=== PATIENT | male | born 1955 | race American Indian/Alaskan Native ===

== ENCOUNTER 2017-04-28 20:38 | Emergency (ER) | payer MEDICARE ==
[2017-04-28] MEDS ORDERED: NACL 0.9% 1000 ML 1,000 ML IV ONE ×5 (20:54→23:58)
[2017-04-28] MEDS: ASPIRIN PO ONE (20:55)
--- NOTE | 2017-04-28 21:32 | Emergency Department Report ---
ED General Adult HPI - General Chief complaint: Syncope Stated complaint: AMS Time Seen by Provider: 04/28/17 21:00 Source: patient, EMS Mode of arrival: Ambulatory Limitations: Altered Mental Status - History of Present Illness Initial comments: 61 yo male who comes in today due to somnolence. The patient states that a family member called ems when they thought he overdosed on his medications. The patient states that he normally takes ambien, a benzodiazepine, and other meds around 4-6 pm each day to get some sleep and wake up around 1 am. When he wakes up at 1 am, he normally watches tv and other chores until it's time to take his sister to dialysis. He states that this is a normal process which takes place each day. He denies any complaints. Somnolence improving in the ED. AAOx3. -: This evening Consistency: now resolved Associated Symptoms: denies other symptoms Treatments Prior to Arrival: none - Related Data Allergies Allergy/AdvReac Type Severity Reaction Status Date / Time No Known Allergies Allergy Unverified 04/28/17 20:45 ED Review of Systems ROS: Stated complaint: AMS Other details as noted in HPI Constitutional: other (somnolence ). denies: chills, fever Eyes: denies: eye pain, eye discharge, vision change ENT: denies: ear pain, throat pain Respiratory: denies: cough, shortness of breath, wheezing Cardiovascular: denies: chest pain, palpitations Endocrine: no symptoms reported Gastrointestinal: denies: abdominal pain, nausea, diarrhea Genitourinary: denies: urgency, dysuria Musculoskeletal: denies: back pain, joint swelling, arthralgia Skin: denies: rash, lesions Neurological: denies: headache, weakness, paresthesias Psychiatric: other (somnolent-see hpi ) Hematological/Lymphatic: denies: easy bleeding, easy bruising ED Past Medical Hx - Past Medical History Previous Medical History?: Yes Hx Hypertension: Yes Hx Diabetes: Yes - Surgical History Past Surgical History?: Yes Additional Surgical History: R. eyelid, L. knee surgery - Social History Smoking Status: Never Smoker ED Physical Exam - General Limitations: Altered Mental Status General appearance: alert - Head Head exam: Present: atraumatic, normocephalic - Eye Eye exam: Present: normal appearance - ENT ENT exam: Present: mucous membranes moist - Neck Neck exam: Present: normal inspection - Respiratory Respiratory exam: Present: normal lung sounds bilaterally. Absent: respiratory distress - Cardiovascular Cardiovascular Exam: Present: regular rate, normal rhythm. Absent: systolic murmur, diastolic murmur, rubs, gallop - GI/Abdominal GI/Abdominal exam: Present: soft, normal bowel sounds - Extremities Exam Extremities exam: Present: normal inspection - Back Exam Back exam: Present: normal inspection - Neurological Exam Neurological exam: Present: alert, oriented X3 - Psychiatric Psychiatric exam: Present: other (somnolent ) - Skin Skin exam: Present: warm, dry, intact, normal color. Absent: rash ED Course Vital Signs 04/28/17 04/28/17 04/28/17 20:47 21:51 21:54 Temperature 98 F Pulse Rate 67 62 64 Respiratory 28 H 18 Rate Blood Pressure 75/47 Blood Pressure 90/48 90/49 [Left] O2 Sat by Pulse 98 97 Oximetry 04/28/17 23:18 Temperature Pulse Rate 59 L Respiratory Rate Blood Pressure Blood Pressure 83/47 [Left] O2 Sat by Pulse Oximetry - Reevaluation(s) Reevaluation #1: 04/28/17 21:34 Plan to give ivf's and let the patient sleep off the meds. Home if evaluation unremarkable. Reevaluation #2: 04/29/17 00:00 I spoke with the patient about his evaluation. I recommended him to be admitted , however, he states that he needs to take his sister to dialysis. She doesn't have anyone else to take her to dialysis. I stated to him that I'd like to give him another liter of fluids before discharge. He was also informed to follow up with his provider in regards to his creatinine of 2.7. ED Medical Decision Making - Lab Data Result diagrams: 04/28/17 21:17 04/28/17 21:17 - Radiology Data Radiology results: report reviewed (Negative chest radiograph) - Medical Decision Making Polypharmacy Acute vs chronic renal failure Syncopal episode - Differential Diagnosis Polypharmacy, syncope, acute vs chronic renal failure Critical care attestation.: If time is entered above; I have spent that time in minutes in the direct care of this critically ill patient, excluding procedure time. ED Disposition Clinical Impression: Syncope, Polypharmacy, Acute renal failure Disposition: TO HOME OR SELFCARE Is pt being admited?: No Does the pt Need Aspirin: No Condition: Stable Instructions: Syncope (ED), Chronic Kidney Disease (ED) Additional Instructions: Please follow up with your provider on discharge. Return to the ED for any dizziness, lightheadedness, nausea, vomiting, shortness of breath, or chest pain. Also remember to hydrate due to your kidney function results. Referrals: PRIMARY CARE, [Primary Care Provider] - 3-5 Days Time of Disposition: 00:09
[2017-04-28 21:44] LABS: Mean Corpuscular HGB Conc 30 % (32-34); Mean Corpuscular Volume 77 fl (84-94); Platelet Count 219 K/mm3 (140-440); Red Blood Count 4.77 M/mm3 (3.65-5.03); Red Cell Distribution Width 14.8 % (13.2-15.2)
[2017-04-28 21:49] LABS: BUN/Creatinine Ratio 14; Blood Urea Nitrogen 38 mg/dL (9-20); Calcium 7.6 mg/dL (8.4-10.2); Hematocrit 36.7 % (35.5-45.6); Hemoglobin 11.1 gm/dl (11.8-15.2); Hemolysis Index 16; Mean Corpuscular Hemoglobin 23 pg (28-32)
[2017-04-28 21:52] LABS: Basophils % (Auto) 0.3 % (0.0-1.8); Eosinophils % (Auto) 0.8 % (0.0-4.3); Lymphocytes # (Auto) 1.2 K/mm3 (1.2-5.4); Lymphocytes % (Auto) 14.7 % (13.4-35.0); Monocytes # (Auto) 0.4 K/mm3 (0.0-0.8)
[2017-04-28 21:53] LABS: Eosinophils # (Auto) 0.1 K/mm3 (0.0-0.4)
--- NOTE | 2017-04-28 22:12 | XRay Report ---
FINAL REPORT PROCEDURE: Chest. TECHNIQUE: Portable AP view. HISTORY: Syncopal episode. COMPARISON: No prior studies are available for comparison. FINDINGS: The heart and mediastinum appear normal. The lungs are clear and well expanded. There are no pleural effusions. The soft tissues and regional skeleton are unremarkable. IMPRESSION: Negative portable chest.
[2017-04-28 22:43] LABS: Bacteria,Urine 1+ /HPF (Negative); Bilirubin,Urine NEG (Negative); Blood,Urine SM (Negative); Color,Urine Yellow (Yellow); Mucus,Urine FEW /HPF; Nitrite,Urine NEG (Negative); Urobilinogen,Urine < 2.0 mg/dL (<2.0)
[2017-04-28 22:45] LABS: Amphetamine Screen,Urine PRESUMPTIVE NEGATIVE; Cannabinoid Screen,Urine PRESUMPTIVE NEGATIVE; Cocaine Screen,Urine PRESUMPTIVE NEGATIVE; Methadone Screen,Urine PRESUMPTIVE NEGATIVE; Opiate Screen,Urine PRESUMPTIVE NEGATIVE
[2017-04-28 23:12] LABS: Benzodiazepines Screen,Urine PRESUMPTIVE POSITIVE
[2017-04-29] MEDS: ASPIRIN PO ONE (00:19)
[2017-04-29 04:43] VITALS: BP 114/72
== END 2017-04-29 04:56 | disposition home or self-care (01) ==
LOC: ED 20:38
DX: I12.9 Hypertensive chronic kidney disease with stage 1 through stage 4 chronic kidney disease, or unspecified chronic kidney disease (principal); E11.22 Type 2 diabetes mellitus with diabetic chronic kidney disease; N18.9 Chronic kidney disease, unspecified
CPT/HCPCS: 36415; 71045; 80048; 80307; 81001; 84484; 85025; 96361; 96374; 99285; G0480; J7030; 80320; J1815

== ENCOUNTER 2019-02-14 17:17 | Emergency (ER) | payer MEDICARE ==
[2019-02-14] MEDS ORDERED: ASPIRIN 81 MG TAB CHEW PO ONE (17:31)
[2019-02-14 17:33] VITALS: BP 166/91
--- NOTE | 2019-02-14 17:35 | Event Note ---
ED Screening Note Date of service: 02/14/18 Time: 17:33 ED Screening Note: Pt complains of right sided chest pain x 10 am today. Hx of CVA pain only occurs with movement of torso and deep inspiration also states some tingling in lips and left hand denies hx of DVT/PE This initial assessment/diagnostic orders/clinical plan/treatment(s) is/are subject to change based on patients health status, clinical progression and re- assessment by fellow clinical providers in the ED. Further treatment and workup at subsequent clinical providers discretion. Patient/guardian urged not to elope from the ED as their condition may be serious if not clinically assessed and managed. Initial orders include: labs CT head CXR aspirin
[2019-02-14 18:14] LABS: Hematocrit 36.2 % (35.5-45.6); Hemoglobin 11.7 gm/dl (11.8-15.2); Mean Corpuscular HGB Conc 32 % (32-34); Mean Corpuscular Volume 74 fl (84-94); Platelet Count 187 K/mm3 (140-440); Red Blood Count 4.88 M/mm3 (3.65-5.03); Red Cell Distribution Width 13.5 % (13.2-15.2)
[2019-02-14 18:29] LABS: INR 1.06 (0.87-1.13)
[2019-02-14 18:30] LABS: Partial Thromboplastin Time 24.5 Sec. (24.2-36.6)
--- NOTE | 2019-02-14 18:33 | Cat Scan Report ---
CT HEAD WITHOUT CONTRAST INDICATION / CLINICAL INFORMATION: MAIN: RT side numbness in fingers and mouth, started this morning. TECHNIQUE: All CT scans at this location are performed using CT dose reduction for ALARA by means of automated e xposure control. COMPARISON: Head CT 09/26/2008 FINDINGS: HEMORRHAGE: No evidence of intracranial hemorrhage or extra-axial fluid collection. EXTRA-AXIAL SPACES: Cortical sulci, sylvian fissures and basilar cisterns have an unremarkable appear ance. VENTRICULAR SYSTEM: The ventricular system is of normal size and configuration. CEREBRAL PARENCHYMA: There is evidence of remote small deep infarction in the head of the caudate nuc leus on the right. No additional areas of abnormal brain parenchymal attenuation are identified. Ther e is no indication of recent infarction. MIDLINE SHIFT OR HERNIATION: There is no mass effect. CEREBELLUM / BRAINSTEM: Brainstem and cerebellum have an unremarkable appearance. INTRACRANIAL VESSELS:No abnormalities are identified on this noncontrast head CT. ORBITS: visualized portions of the orbits have an unremarkable appearance. SOFT TISSUES of HEAD: No significant abnormality. CALVARIUM: Evaluation of bone windows reveals no abnormalities. PARANASAL SINUSES / MASTOID AIR CELLS: Paranasal sinuses are free from inflammatory mucosal disease. Mastoid air cells are normally pneumatized. IMPRESSION: 1. 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 2. Otherwise negative head CT without contrast. Signer Name: Jersey Swartz MD Signed: 02/14/2019 6:29 PM Workstation Name: [id number]
[2019-02-14 18:36] LABS: BUN/Creatinine Ratio 11; Blood Urea Nitrogen 37 mg/dL (9-20); Calcium 8.6 mg/dL (8.4-10.2); Hemolysis Index 5
--- NOTE | 2019-02-14 18:51 | XRay Report ---
CHEST 1 VIEW INDICATION / CLINICAL INFORMATION: Chest Pain. COMPARISON: 04/28/2017 FINDINGS: SUPPORT DEVICES: None. HEART / MEDIASTINUM: No significant abnormality. LUNGS / PLEURA: No significant pulmonary or pleural abnormality.. No pneumothorax. ADDITIONAL FINDINGS: No significant additional findings. IMPRESSION: 1. No acute findings. Signer Name: Zeus Low MD Signed: 02/14/2019 6:47 PM Workstation Name: [id number]
--- NOTE | 2019-02-14 21:26 | Emergency Department Report ---
ED Chest Pain HPI - General Chief Complaint: Chest Pain Stated Complaint: CHEST PAIN Time Seen by Provider: 02/14/19 17:29 Source: patient Mode of arrival: Ambulatory Limitations: No Limitations - History of Present Illness Initial Comments: Patient is a 63-year-old male that presents emergency room with complaints of right-sided chest pain. She states his symptoms started 10 AM this morning. Patient states his chest pain is a 3 out of 10. Patient states the pain is better with rest and worse with taking a deep breath. Patient states he feels like his pleurisy. Patient denies shortness of breath. Patient denies fever and chills. Patient denies nausea vomiting. Patient denies anxiety and diaphoresis. Patient denies headache. Patient denies any other complaints. Patient denies facial numbness. Patient denies hand numbness. MD Complaint: chest pain -: Sudden Onset: during rest Pain Location: right chest Pain Radiation: none Severity scale (0 -10): 3 Quality: pressure Consistency: constant Improves With: rest Worsens With: inspiration re: denies: nausea, vomting, diaphoresis, dyspnea, sense of impending doom Other Symptoms: denies: cough, fever, syncope, rash, acid taste in mouth, leg swelling, palpitations, burping Treatments Prior to Arrival: none Aspirin use within the Past 7 Days: (1) Yes - Related Data On Oral Contraceptives: No Home Medications Medication Instructions Recorded Confirmed Last Taken Chlorzoxazone (Nf) [Parafon Forte 500 mg PO TID 02/14/19 02/14/19 Unknown Dsc (Nf)] Colesevelam [Welchol] 1,875 mg PO BID 02/14/19 02/14/19 Unknown Lidocaine [Lidocaine OINT] 37.5 gm TP DAILY 02/14/19 02/14/19 Unknown Lisinopril [Zestril TAB] 40 mg PO DAILY 02/14/19 02/14/19 Unknown Metformin HCl [metFORMIN] 1,000 mg PO DAILY 02/14/19 02/14/19 Unknown Promethazine [Phenergan] 25 mg PO TID PRN 02/14/19 02/14/19 Unknown Zolpidem [Ambien] 20 mg PO QHS 02/14/19 02/14/19 Unknown amLODIPine [Norvasc] 10 mg PO DAILY 02/14/19 02/14/19 Unknown diazePAM [Diazepam] 10 mg PO BID 02/14/19 02/14/19 Unknown tiZANidine [Zanaflex 4mg TAB] 4 mg PO TID 02/14/19 02/14/19 Unknown Previous Rx's Medication Instructions Recorded Last Taken Type methylPREDNISolone [Medrol 4MG 4 mg PO DAILY 6 Days #1 tab.ds.pk 02/15/19 Unknown Rx DOSEPAK (21 tabs)] Allergies Allergy/AdvReac Type Severity Reaction Status Date / Time No Known Allergies Allergy Unverified 04/28/17 20:45 Heart Score - HEART Score History: Slightly suspicious EKG: Normal Age: 45-65 Risk factors: > 3 risk factors or hx of atherosclerotic disease Troponin: < normal limit HEART Score: 3 ED Review of Systems ROS: Stated complaint: CHEST PAIN Other details as noted in HPI Constitutional: denies: chills, fever Eyes: denies: eye pain, eye discharge, vision change ENT: denies: ear pain, throat pain Respiratory: denies: cough, shortness of breath, wheezing Cardiovascular: chest pain. denies: palpitations Endocrine: no symptoms reported Gastrointestinal: denies: abdominal pain, nausea, diarrhea Genitourinary: denies: urgency, dysuria Musculoskeletal: denies: back pain, joint swelling, arthralgia Skin: denies: rash, lesions Neurological: denies: headache, weakness, paresthesias Psychiatric: denies: anxiety, depression Hematological/Lymphatic: denies: easy bleeding, easy bruising ED Past Medical Hx - Past Medical History Previous Medical History?: Yes Hx Hypertension: Yes Hx CVA: Yes Hx Diabetes: Yes - Surgical History Past Surgical History?: Yes Additional Surgical History: R. eyelid, L. knee surgery - Family History Family history: no significant - Social History Smoking Status: Former Smoker Substance Use Type: None - Medications Home Medications: Home Medications Medication Instructions Recorded Confirmed Last Taken Type Chlorzoxazone (Nf) [Parafon Forte 500 mg PO TID 02/14/19 02/14/19 Unknown History Dsc (Nf)] Colesevelam [Welchol] 1,875 mg PO BID 02/14/19 02/14/19 Unknown History Lidocaine [Lidocaine OINT] 37.5 gm TP DAILY 02/14/19 02/14/19 Unknown History Lisinopril [Zestril TAB] 40 mg PO DAILY 02/14/19 02/14/19 Unknown History Metformin HCl [metFORMIN] 1,000 mg PO DAILY 02/14/19 02/14/19 Unknown History Promethazine [Phenergan] 25 mg PO TID PRN 02/14/19 02/14/19 Unknown History Zolpidem [Ambien] 20 mg PO QHS 02/14/19 02/14/19 Unknown History amLODIPine [Norvasc] 10 mg PO DAILY 02/14/19 02/14/19 Unknown History diazePAM [Diazepam] 10 mg PO BID 02/14/19 02/14/19 Unknown History tiZANidine [Zanaflex 4mg TAB] 4 mg PO TID 02/14/19 02/14/19 Unknown History methylPREDNISolone [Medrol 4MG 4 mg PO DAILY 6 Days #1 tab.ds.pk 02/15/19 Unknown Rx DOSEPAK (21 tabs)] ED Physical Exam - General Limitations: No Limitations General appearance: alert, in no apparent distress - Head Head exam: Present: atraumatic, normocephalic - Eye Eye exam: Present: normal appearance - ENT ENT exam: Present: mucous membranes moist - Neck Neck exam: Present: normal inspection - Respiratory Respiratory exam: Present: normal lung sounds bilaterally, chest wall tenderness (rt chest ttp). Absent: respiratory distress, wheezes, rales, rhonchi, stridor, accessory muscle use, decreased breath sounds, prolonged expiratory - Cardiovascular Cardiovascular Exam: Present: regular rate, normal rhythm. Absent: systolic murmur, diastolic murmur, rubs, gallop - GI/Abdominal GI/Abdominal exam: Present: soft, normal bowel sounds - Rectal Rectal exam: Present: deferred - Extremities Exam Extremities exam: Present: normal inspection - Back Exam Back exam: Present: normal inspection - Neurological Exam Neurological exam: Present: alert, oriented X3 - Psychiatric Psychiatric exam: Present: normal affect, normal mood - Skin Skin exam: Present: warm, dry, intact, normal color. Absent: rash ED Course Vital Signs 02/14/19 02/14/19 17:31 22:31 Temperature 98.3 F Pulse Rate 59 L Respiratory 18 18 Rate Blood Pressure 166/91 O2 Sat by Pulse 100 100 Oximetry - Reevaluation(s) Reevaluation #1: I discussed all results with patient. Patient states she is pain-free. Patient will be given IM Solu-Medrol. I discussed plan of care with patient. Patient agrees plan of care. Patient given discharge instructions. Patient voiced understanding of discharge instructions. Patient will be discharged home. Patient is stable for discharge. 02/15/19 00:08 ED Medical Decision Making - Lab Data Result diagrams: 02/14/19 17:59 02/14/19 17:59 - EKG Data -: EKG Interpreted by Me EKG shows normal: sinus rhythm, axis, intervals, QRS complexes, ST-T waves Rate: bradycardia - Radiology Data Radiology results: report reviewed, image reviewed interpreted by me: No acute findings on chest x-ray. CHEST 1 VIEW INDICATION / CLINICAL INFORMATION: Chest Pain. COMPARISON: 04/28/2017 FINDINGS: SUPPORT DEVICES: None. HEART / MEDIASTINUM: No significant abnormality. LUNGS / PLEURA: No significant pulmonary or pleural abnormality.. No pneumothorax. ADDITIONAL FINDINGS: No significant additional findings. IMPRESSION: 1. No acute findings. CT HEAD WITHOUT CONTRAST INDICATION / CLINICAL INFORMATION: MAIN: RT side numbness in fingers and mouth, started this morning. TECHNIQUE: All CT scans at this location are performed using CT dose reduction for ALARA by means of automated exposure control. COMPARISON: Head CT 09/26/2008 FINDINGS: HEMORRHAGE: No evidence of intracranial hemorrhage or extra-axial fluid collection. EXTRA-AXIAL SPACES: Cortical sulci, sylvian fissures and basilar cisterns have an unremarkable appearance. VENTRICULAR SYSTEM: The ventricular system is of normal size and configuration. CEREBRAL PARENCHYMA: There is evidence of remote small deep infarction in the head of the caudate nucleus on the right. No additional areas of abnormal brain parenchymal attenuation are identified. There is no indication of recent infarction. MIDLINE SHIFT OR HERNIATION: There is no mass effect. CEREBELLUM / BRAINSTEM: Brainstem and cerebellum have an unremarkable appearance. INTRACRANIAL VESSELS:No abnormalities are identified on this noncontrast head CT. ORBITS: visualized portions of the orbits have an unremarkable appearance. SOFT TISSUES of HEAD: No significant abnormality. CALVARIUM: Evaluation of bone windows reveals no abnormalities. PARANASAL SINUSES / MASTOID AIR CELLS: Paranasal sinuses are free from inflammatory mucosal disease. Mastoid air cells are normally pneumatized. IMPRESSION: 1. 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 2. Otherwise negative head CT without contrast. CT CHEST WITHOUT CONTRAST INDICATION: chest pain CONTRAST: Without IV COMPARISON: [facility] chest x-ray [place], thyroid ultrasound 08/26/[address] scans at this location are performed using CT dose reduction for ALARA by means of automated exposure control. FINDINGS: Left lobe thyroid is enlarged and shows nodular hypodensities measuring up to approximately 2.3 cm. Right lobe appears to been removed since 2014. No significant axillary or chest wall abnormalities are seen. No mediastinal or hilar masses are noted. Visualized portions of the upper abdomen show no acute abnormalities. No pneumothorax or pneumomediastinum are seen. Lung valladares show only slight atelectatic change. No areas of consolidation are seen. No nodules or masses are noted. No pleural effusions are seen. IMPRESSION: 1. No significant acute abnormalities are seen 2. Left thyroid nodularity. This has been demonstrated in the past. - Medical Decision Making Is a 63-year-old male that presents emergency room with complaints of right- sided chest pain. Patient states the last time he had right-sided chest it was pleurisy. Patient's findings are consistent with pleurisy. Patient given a steroid pack. Patient's labs essentially unremarkable except for CKD. Patient's chest x-ray negative for acute findings. Patient had a CT scan of the chest and was negative. Patient EKG shows sinus bradycardia. Patient stable for discharge. Patient discharged home. Patient discharged home with Medrol pack. - Differential Diagnosis pleurisy. Chest pain. Critical care attestation.: If time is entered above; I have spent that time in minutes in the direct care of this critically ill patient, excluding procedure time. ED Disposition Clinical Impression: Pleurisy, Right-sided chest pain, Essential hypertension Chest pain Qualifiers: Chest pain type: unspecified Qualified Code(s): R07.9 - Chest pain, unspecified CKD (chronic kidney disease) Qualifiers: Chronic kidney disease stage: unspecified stage Qualified Code(s): N18.9 - Chronic kidney disease, unspecified Disposition: - TO HOME OR SELFCARE Is pt being admited?: No Does the pt Need Aspirin: No Condition: Stable Instructions: Chest Pain (ED), Pleurisy (ED), Heart Healthy Diet (ED), How to Take a Blood Pressure (ED), DASH Eating Plan (ED), Low Sodium Diet (ED), Hyper tension (ED) Additional Instructions: Patient to follow-up with primary care in 2-3 days. Patient to follow-up with range technician in 2-3 days. Patient to follow up with software licensing analyst in 2-3 days. Patient to follow up with r[employer]ian rubber in 2-3 days. Patient to return to ER condition worsens. Patient to rest. Patient increase water. Patient take Tylenol when necessary for pain. Patient take meds as directed. Patient to continue all other medications. Prescriptions: methylPREDNISolone [Medrol 4MG DOSEPAK (21 tabs)] 4 mg PO DAILY 6 Days #1 tab.ds.pk Referrals: PRIMARY CARE, [Primary Care Provider] - 2-3 Days Time of Disposition: 00:05
[2019-02-14] MEDS ORDERED: ASPIRIN 325 MG TAB PO ONE (21:27)
--- NOTE | 2019-02-14 23:42 | Cat Scan Report ---
CT CHEST WITHOUT CONTRAST INDICATION: chest pain CONTRAST: Without IV COMPARISON: [facility] chest x-ray tonight, thyroid ultrasound 08/26/[address] scans at this location are performed using CT dose reduction for ALARA by means of automated e xposure control. FINDINGS: Left lobe thyroid is enlarged and shows nodular hypodensities measuring up to approximately 2.3 cm. Right lobe appears to been removed since 2014. No significant axillary or chest wall abnormalities are seen. No mediastinal or hilar masses are note d. Visualized portions of the upper abdomen show no acute abnormalities. No pneumothorax or pneumomed iastinum are seen. Lung valladares show only slight atelectatic change. No areas of consolidation are see n. No nodules or masses are noted. No pleural effusions are seen. IMPRESSION: 1. No significant acute abnormalities are seen 2. Left thyroid nodularity. This has been demonstrated in the past. Signer Name: Matty Paniagua MD Signed: 02/14/2019 11:38 PM Workstation Name: [id number]
[2019-02-15] MEDS ORDERED: methylPREDNISolone Sod Succinate 40 MG/1 ML INJ IM ONE (00:19)
== END 2019-02-15 00:51 | disposition home or self-care (01) ==
LOC: ED 17:17
DX: R07.89 Other chest pain (principal); R09.1 Pleurisy; R20.0 Anesthesia of skin; E11.22 Type 2 diabetes mellitus with diabetic chronic kidney disease; I12.9 Hypertensive chronic kidney disease with stage 1 through stage 4 chronic kidney disease, or unspecified chronic kidney disease; N18.9 Chronic kidney disease, unspecified; Z79.84 Long term (current) use of oral hypoglycemic drugs; Z79.899 Other long term (current) drug therapy; Z87.891 Personal history of nicotine dependence
CPT/HCPCS: 36415; 70450; 71045; 71250; 80048; 84484; 85027; 85610; 85730; 93005; 93010; 96372; 99285; J2920

== ENCOUNTER 2021-01-28 11:25 | Outpatient (CLI) | payer MEDICARE ==
--- NOTE | 2021-01-28 17:23 | Ultrasound Report ---
ULTRASOUND RENAL INDICATION / CLINICAL INFORMATION: CHRONIC KIDNEY DISEASE. COMPARISON: None available. FINDINGS: RIGHT KIDNEY: Length = 10.6 cm. - Echogenicity: Increased. - Cortical Thickness: Mild thinning. - Hydronephrosis: None. - Cyst / Mass: None. - Stones: None seen. LEFT KIDNEY: Length = 10.2 cm. - Echogenicity: Increased. - Cortical Thickness: Mild thinning. - Hydronephrosis: None. - Cyst / Mass: None. - Stones: None seen. URINARY BLADDER: No significant abnormality. FREE FLUID: None. ADDITIONAL FINDINGS: There is a nonspecific area of hyperechogenicity within the left upper pole alfa uring 2.5 x 0.9 x 0.6 cm. IMPRESSION: 1. Findings suggesting chronic medical renal disease. 2. 2.5 cm nonspecific area of hyperechogenicity within the left upper pole. Scribed by: Mami Castellano RDMS, RVT Scribed: 01/28/2021 2:48 PM I have reviewed the images, agree with this report, and edited this report as needed. Signer Name: Toy Geller MD Signed: 01/28/2021 5:19 PM Workstation Name: [id number]
== END 2021-01-28 11:26 | disposition home or self-care (01) ==
LOC: US 11:25
DX: N18.31 Chronic kidney disease, stage 3a (principal); N28.89 Other specified disorders of kidney and ureter
CPT/HCPCS: 76770